=== PATIENT | female | born 1970 | race Caucasian/White ===

== ENCOUNTER 2023-08-05 11:41 | Emergency (ER) | payer OTHER, SELFPAY ==
[2023-08-05 12:11] VITALS: BP 141/92; PULSE 79; RESP 16; TEMP 36.8; O2SAT 100
--- NOTE | 2023-08-05 12:39 | ED.FEMALEGU ---
HPI - Female Genitourinary General Chief complaint: Urogenital-Female Stated complaint: UTI Time Seen by Provider: 08/05/23 12:39 Source: patient and RN notes reviewed Mode of arrival: ambulatory Limitations: no limitations History of Present Illness HPI Narrative: 53-year-old female presents with concern for urinary tract infection. She reports about 1 week history of dysuria, frequency, urgency, left low back pain and left lower abdominal pain. Reports nausea without vomiting. Reports history of urinary tract infections. She took azo this morning and has been taken ibuprofen MD elicited complaint: UTI Related Data Home Medications Medication Instructions Recorded Confirmed omega-3 fatty acids 1 cap PO DIRECTED 08/05/23 08/05/23 Allergies Allergy/AdvReac Type Severity Reaction Status Date / Time No Known Allergies Allergy Verified 08/05/23 12:20 Review of Systems Review of Systems: CONSTITUTIONAL: Denies malaise, chills, sweats, or fever. CARDIOVASCULAR: Denies chest pain, palpitations, or edema. RESPIRATORY: Denies cough or dyspnea. GASTROINTESTINAL: Reports left lower abdominal pain. Denies nausea, vomiting, diarrhea GENITOURINARY: Reports dysuria, frequency, urgency, left flank pain, hematuria. SKIN: Denies rash or itching. MUSCULOSKELETAL: Denies back pain or myalgia. All systems reviewed & are unremarkable except as noted in HPI and below PMFSH Surgical History Surgical History H/O tubal ligation Hx of tonsillectomy S/P partial hysterectomy Family History Family History Other Alzheimer's disease Cerebrovascular accident Diabetes mellitus History of cancer Social History Social History Smoking status: Never smoker Alcohol intake: current Substance use: never Comments At time of signature, agree with nursing past medical, surgical, social and family history. There is no relevant family history pertinent to the presenting complaint Exam Narrative: GENERAL: Well-appearing, well-nourished, and in no acute distress. HEAD: Normocephalic. EYES: PERRLA, conjunctivae clear. NECK: Supple. No lymphadenopathy CHEST: Clear to auscultation. No respiratory distress. HEART: Regular rate and rhythm. ABDOMEN: Soft, nontender upon palpation, nondistended, normal active bowel sounds, no palpable or pulsatile masses, no guarding. No CVA tenderness SKIN: Warm, dry, no rash. NEURO: Alert and oriented x3. PSYCH: Normal mood and affect Course Course Emergency Course: Patient is aware of diagnosis, understands and agrees to treatment plan. Anticipatory guidance given. Patient agrees to follow-up as directed and is aware of reasons to seek care at the emergency department. Portions of this record may have been created with voice recognition software Level of Care: Express Care Visit Vital Signs Vital signs: Vital Signs Temperature 98.3 F 08/05/23 12:11 Pulse Rate 79 08/05/23 12:11 Respiratory Rate 16 08/05/23 12:11 Blood Pressure 141/92 H 08/05/23 12:11 Pulse Oximetry 100 08/05/23 12:11 Oxygen Delivery Room Air 08/05/23 12:11 Temperature 98.3 F 08/05/23 12:11 Pulse Rate 79 08/05/23 12:11 Respiratory Rate 16 08/05/23 12:11 Blood Pressure 141/92 H 08/05/23 12:11 Pulse Oximetry 100 08/05/23 12:11 Oxygen Delivery Room Air 08/05/23 12:11 Reviewed. MDM - Female Genitourinary MDM Narrative Medical decision making narrative: Exam findings and UA show no acute concerns or changes; patient is non-toxic appearing and is in no distress. Patient is appropriate for outpatient treatment and follow-up. Differential Diagnosis Differential diagnosis: Likely urinary tract infection and cystitis Lab Data Labs: Urine Glucose Negative
== END 2023-08-05 12:50 | disposition home or self-care (01) ==
PROVIDERS: Emergency Provider Nurse Practitioner; PCP Family Medicine
DX: N39.0 Urinary tract infection, site not specified (principal); B96.4 Proteus (mirabilis) (morganii) as the cause of diseases classified elsewhere
CPT/HCPCS: 81003; 87077; 87086; 87186; 99213; G0463